=== PATIENT | male | born 1950 | race Caucasian/White ===

== ENCOUNTER 2016-07-03 11:16 | Outpatient (CLI) | payer MEDICARE, OTHER ==
[2016-07-03 12:34] LABS: Blood, Urine Moderate (Negative); Clarity Clear (Clear); Glucose, Urine (Dipstick) Negative (Negative); Leukocyte Negative (Negative); Nitrite Negative (Negative); Protein, Urine (Dipstick) 30 mg/dL (Neg-Trace); Urobilinogen 0.2 mg/dL (0.2-1.0); pH, Urine 5.5 (5.0-9.0)
[2016-07-03 12:47] LABS: Bilirubin Negative (Negative); Icto Negative (Negative)
[2016-07-03 13:00] LABS: ALT (SGPT) 37 U/L (8-55); AST (SGOT) 22 U/L (5-34); Albumin 4.3 g/dL (3.4-4.8); Alkaline Phosphatase 51 U/L (40-150); Anion Gap 18 mmol/L (10-20); BUN (Urea Nitrogen) 25 mg/dL (8.4-25.7); Bilirubin, Total 0.7 mg/dL (0.2-1.2); Calc. Creatinine Clearance 0 mL/min (70-130); Calcium 9.9 mg/dL (7.8-10.44); Carbon Dioxide 19 mmol/L (23-31); Chloride 106 mmol/L (98-107); Estimated GFR-MDRD 40; Globulin 2.9 g/dL (2.4-3.5); Glucose 106 mg/dL (80-115); Potassium 5.2 mmol/L (3.5-5.1); Protein, Total 7.2 g/dL (5.8-8.1); Sodium 138 mmol/L (136-145)
[2016-07-03 13:43] LABS: Band 19 % (5-11); Eosinophils 25 % (0-10); Hemoglobin 13.8 g/dL (14.0-18.0); Lymphocytes 9 % (21-51); MDiff Complete? YES; Mean Corpuscular HGB CONC 34.3 g/dL (32.0-36.0); Mean Corpuscular Hemoglobin 31.8 pg (27.0-31.0); Mean Corpuscular Volume 92.8 fl (80.0-94.0); Monocytes 8 % (0-10); Neutrophil 39 % (42-75); PLT Morphology Comment Appears Adequate; Platelet Count 285 thou/uL (130-400); RBC Distribution Width 11.9 % (11.5-14.5); Red Blood Cell (RBC) Count 4.32 mill/uL (4.70-6.10)
[2016-07-03 13:51] LABS: PSA-Asymptomatic (SCREENING) 0.83 ng/mL (0-4.0); Thyroid Stimulating Hormone 2.5361 uIU/mL (0.35-4.94)
[2016-07-03 14:18] LABS: Squamous Epithelial 0-3 HPF (0-3)
[2016-07-03 14:19] LABS: Bacteria/HPF 1+ HPF (None Seen); Hyaline Casts/LPF 0-3 HYALINE CAST LPF (0-3 Hyaline); Other Microscopic Description NO
== END 2016-07-03 11:17 | disposition home or self-care (01) ==
LOC: NAVSJIPCSP 11:16
PROVIDERS: ATTEND Internal Medicine
DX: I10 Essential (primary) hypertension (principal); R63.4 Abnormal weight loss
CPT/HCPCS: 36415; 80053; 81003; 81015; 84443; 85025; G0103

== ENCOUNTER 2016-07-03 12:01 | Outpatient (CLI) | payer MEDICARE ==
--- NOTE | 2016-07-03 15:34 | RAD ---
TWO VIEWS OF THE CHEST 07/03/16 COMPARISON: None. HISTORY: Hypertension, smoker, shortness of breath. FINDINGS: There is a soft tissue mass in the left hilum measuring approximately 4 cm. There is a cavitary lesi on in the lateral aspect of the left upper lobe measuring up to approximately 2.3 cm. No pneumothora x is seen. The right lung appears clear. No pleural fluid. IMPRESSION: Cavitary lesion in lateral aspect of left upper lobe with left hilar mass lesion. The findings are s uspicious for cavitary left upper lobe neoplasm with hilar metastatic disease. A CT examination of t he chest with IV contrast is advised for further characterization. Code T-Findings discussed with Dr. Avila at 1pm on 07/03/2016. POS: [facility]
== END 2016-07-03 12:02 | disposition home or self-care (01) ==
LOC: NAV RAD 12:01
PROVIDERS: ATTEND Internal Medicine
DX: I10 Essential (primary) hypertension (principal)
CPT/HCPCS: 36415; 71020; 80053; 81003; 81015; 84443; 85025; G0103

== ENCOUNTER 2016-07-07 12:15 | Outpatient (CLI) | payer MEDICARE ==
[2016-07-07 12:46] LABS: Anion Gap 16 mmol/L (10-20); BUN (Urea Nitrogen) 25 mg/dL (8.4-25.7); Calc. Creatinine Clearance 0 mL/min (70-130); Calcium 9.5 mg/dL (7.8-10.44); Carbon Dioxide 19 mmol/L (23-31); Chloride 106 mmol/L (98-107); Estimated GFR-MDRD 44; Glucose 122 mg/dL (80-115); Potassium 4.7 mmol/L (3.5-5.1); Sodium 136 mmol/L (136-145)
[2016-07-07 13:20] LABS: Band 8 % (5-11); Eosinophils 27 % (0-10); Hemoglobin 12.7 g/dL (14.0-18.0); Lymphocytes 6 % (21-51); MDiff Complete? YES; Mean Corpuscular HGB CONC 34.3 g/dL (32.0-36.0); Mean Corpuscular Hemoglobin 31.9 pg (27.0-31.0); Mean Corpuscular Volume 93.1 fl (80.0-94.0); Mean Platelet Volume 6.5 fL (7.4-10.4); Monocytes 5 % (0-10); Neutrophil 53 % (42-75); PLT Morphology Comment Appears Adequate; Platelet Count 274 thou/uL (130-400); RBC Distribution Width 12.1 % (11.5-14.5); RBC Morphology Normal; Red Blood Cell (RBC) Count 3.97 mill/uL (4.70-6.10); White Blood Cell (WBC) Count 28.7 thou/uL (4.8-10.8)
== END 2016-07-07 12:16 | disposition home or self-care (01) ==
LOC: NAV LAB 12:15
PROVIDERS: ATTEND Internal Medicine
DX: J98.4 Other disorders of lung (principal)
CPT/HCPCS: 36415; 80048; 85025

== ENCOUNTER 2016-07-07 13:46 | Inpatient (IN) | payer MEDICARE ==
[2016-07-07] MEDS ORDERED: Dextrose 5 % And 0.9 % NaCl 1,000 ML IV SCH (14:15)
[2016-07-07 15:25] VITALS: BMI 21.6
[2016-07-07] MEDS ORDERED: Acetaminophen 325 MG TAB PO PRN (19:49)
[2016-07-07] MEDS ORDERED: Ondansetron ODT 4 MG TAB PO PRN (19:49)
[2016-07-07] MEDS ORDERED: Enoxaparin Sodium 40 MG/0.4 ML SYRINGE SC SCH (20:00)
[2016-07-07] MEDS: Sodium Chloride 0.9% 1,000 ML IV SCH (20:37)
[2016-07-07] MEDS: Escitalopram Oxalate 10 mg Tablet PO SCH (20:37)
[2016-07-07] MEDS: Famotidine 20 MG TAB PO SCH (20:37)
[2016-07-07] MEDS: Clindamycin/D5W 600 MG in Premix Bag 1 BAG IVPB SCH (21:32)
[2016-07-08] MEDS: Clindamycin/D5W 600 MG in Premix Bag 1 BAG IVPB SCH ×3 (05:16→15:17)
[2016-07-08] MEDS: Sodium Chloride 0.9% 1,000 ML IV SCH ×2 (05:16→13:39)
[2016-07-08 06:24] LABS: Anion Gap 13 mmol/L (10-20); BUN (Urea Nitrogen) 17 mg/dL (8.4-25.7); Calc. Creatinine Clearance 54 mL/min (70-130); Calcium 8.8 mg/dL (7.8-10.44); Carbon Dioxide 20 mmol/L (23-31); Chloride 110 mmol/L (98-107); Estimated GFR-MDRD 52; Glucose 102 mg/dL (80-115); Potassium 4.6 mmol/L (3.5-5.1); Sodium 138 mmol/L (136-145)
[2016-07-08 06:33] LABS: Band 7 % (5-11); Eosinophils 27 % (0-10); Hemoglobin 10.9 g/dL (14.0-18.0); Lymphocytes 10 % (21-51); MDiff Complete? YES; Mean Corpuscular Hemoglobin 31.5 pg (27.0-31.0); Mean Corpuscular Volume 92.5 fl (80.0-94.0); Mean Platelet Volume 6.8 fL (7.4-10.4); Neutrophil 56 % (42-75); PLT Morphology Comment Appears Adequate; Platelet Count 248 thou/uL (130-400); RBC Distribution Width 12.2 % (11.5-14.5); Red Blood Cell (RBC) Count 3.44 mill/uL (4.70-6.10); White Blood Cell (WBC) Count 25.8 thou/uL (4.8-10.8)
[2016-07-08 07:45] VITALS: BP 113/64; TEMP 98.2
[2016-07-08] MEDS ORDERED: Lisinopril 20 MG TAB PO SCH ×2 (09:00)
[2016-07-08] MEDS ORDERED: Iopamidol 370 76% 100 ML VIAL ONE (09:00)
[2016-07-08] MEDS: Escitalopram Oxalate 10 mg Tablet PO SCH (09:07)
[2016-07-08] MEDS: Famotidine 20 MG TAB PO SCH (09:07)
--- NOTE | 2016-07-08 09:44 | CT ---
CHEST CT WITH CONTRAST: HISTORY: Abnormal chest radiograph. Cavitary lesion versus left hilar mass. COMPARISON: None. TECHNIQUE: Postcontrast chest CT is performed in the axial plane. Coronal reformatted images are submitted for interpretation. CORRELATION: CT liver biopsy 10/05/14, abdomen and pelvic ct 09/13/14. FINDINGS: Heart size is normal. No significant pericardial fluid. There is an enlarged, necrotic prevascular lymph node measuring 2.9 x 1.9 cm. A small amount of coronary calcifications. Visualized aorta villegas s a normal caliber. There is atherosclerosis. Stable hypodensities in the liver and spleen. Visualized pancreas is unremarkable. Trachea and central bronchi are patent. There is a cavitary lesion in the left upper lobe measuring 2.2 x 2.7 cm. There are nonspecific ground-glass opacities involving the left upper lobe. There i s a left hilar/suprahilar mass measuring 4.5 x 4.0 cm. There are no suspicious masses in the left l ower lobe, or in the right lung. No pleural effusion or pneumothorax. No osteoblastic or osteolytic lesions. IMPRESSION: 1. Left hilar mass. 2. Necrotic left prevascular lymph node. 3. Cavitary lesion in the left upper lobe. POS: [facility]
[2016-07-08] MEDS ORDERED: ALPRAZolam 0.5 MG TAB PO SCH (14:00)
--- NOTE | 2016-07-08 15:20 | SS ---
DATE OF ADMISSION: 07/07/2016 DATE OF TRANSFER: 07/08/2016 FINAL DIAGNOSES: 1. Metastatic probable lung cancer with cavitation and superimposed infection of the left upper lob e. 2. Hypertension. 3. Anxiety and depression. HOSPITAL COURSE: The patient is a 65-year-old white male with a history of hypertension and nicotin e abuse, still smoking a pack of cigarettes daily with a 92-awca-qady history of smoking who has had a 40-pound weight loss over the last several months, which he is felt to have been due to recurrent painful teeth requiring removal of multiple teeth and difficulty with ingestion of food secondary t o subsequent pain. He has not had any fever or chills. He has had essentially no cough, but has re cently developed a dry cough with some minimal sputum production and occasional blood tinged. PAST MEDICAL HISTORY: As mentioned above is remarkable for hypertension, well controlled on lisinop ril 20 mg daily. Depression and anxiety well controlled on escitalopram 10 mg twice daily. ALLERGIES: He has no known allergies. SOCIAL HISTORY: He has no other surgeries. FAMILY MEDICAL HISTORY: Positive for hypertension. SOCIAL HISTORY: He lives with his for several years. He drinks only occasionally. He has the above-mentioned smoking history. He is a of the [place] War with some flashbacks. REVIEW OF SYSTEMS: HEENT: Denies headaches, dizziness, change in vision or hearing, hoarseness or dysphagia. He has n o fever, chills, and sweats. Has the above-mentioned weight change. He has the above-mentioned onl y minimal cough with no shortness of breath, only minimal hemoptysis. No sputum change. CARDIOVASCULAR: Denies chest pain, orthopnea, paroxysmal nocturnal dyspnea, dyspnea on exertion. GASTROINTESTINAL: Has poor appetite, no nausea and vomiting, abdominal pain, diarrhea, constipation . GENITOURINARY: Denies dysuria, hematuria, and nocturia. MUSCULOSKELETAL: Denies stiffness, swelling in joints or extremities. PHYSICAL EXAMINATION: GENERAL: The patient is a middle-aged white male who appears in no acute distress, oriented x3, and cooperative. VITAL SIGNS: Shows blood pressure to be 105/74, weight is 162, pulse 72, BMI 21, O2 sats 96% on nate m air. HEENT: Pupils are equal, round, and react to light and accommodation. Sclerae are anicteric. Conj unctivae pale. Oral mucous membranes are well hydrated. It does appear to be some temporal wasting . NECK: Supple. There are no nodes or masses. JVP is not elevated. LUNGS: Clear. No rales, rhonchi or wheezes. CARDIAC: Examination showed regular rhythm. No gallops or murmurs. ABDOMEN: Soft, nontender with no masses or organomegaly. SKIN AND EXTREMITIES: Display no edema, clubbing, cyanosis. NEUROLOGICAL: Intact. LABORATORY DATA AND X-RAY FINDINGS: Laboratories show white count is 25,800, hematocrit 32, hemoglo bin 10. Sodium is 138, potassium 4.6, chloride 110, bicarbonate 20, BUN 17, creatinine 1.37, glucos e 102, and calcium 8.8. Initial chest x-ray was readout as an outpatient showing cavitary lesion in lateral aspect of left upper lobe with left arm mass lesion consistent with cavitary left upper lob e neoplasm with hilar metastatic disease. However, original creatinine was 1.72 making it unable to obtain CT contrast, but this is improved to 1.57 on admission into 1.37 after being given a liter o f saline overnight. He was started also on clindamycin because of the leukocytosis and possible pos tobstructive pneumonia or possible cavitary lung abscess secondary to dental abscesses and caries, b ut this is unlikely. The patient has had CT scan, which is confirmed right now. This appears to be a cavitary lung cancer with metastasis to the hilum and therefore require a pulmonary evaluation fo r possible diagnosis and a referral to Oncology assist, does not appear to be a surgical disease. Orlando randhawa has never had signs of fever or sepsis during his hospitalization and on discharge and transfers. Temperature is still afebrile at 98, pulse 73, O2 saturation is 97%, respirations 16, blood pressur e 113/64. He is felt to be stable to be transferred to [place]. Pulmonary and Oncology evaluati on and possible biopsy with bronchoscopy or percutaneous consultation will be obtained with the hosp italist prior to transfer. Family understands this. Poor prognosis. He is a FULL CODE.
== END 2016-07-08 16:45 | disposition short-term general hospital (02) | DRG 181 ==
LOC: NAV ACUTE 13:46
PROVIDERS: ADMIT Internal Medicine; ATTEND Internal Medicine
DX: C34.12 Malignant neoplasm of upper lobe, left bronchus or lung (principal); C79.9 Secondary malignant neoplasm of unspecified site; I10 Essential (primary) hypertension; F41.9 Anxiety disorder, unspecified; F32.9 Major depressive disorder, single episode, unspecified; F17.210 Nicotine dependence, cigarettes, uncomplicated
CPT/HCPCS: 36415; 71260; 80048; 85025; 87040; 87070; 87116; 87149; 87205; 87206; A4216; J1650; J3490; J7042; J7050

== ENCOUNTER 2016-08-20 13:28 | Outpatient (CLI) | payer MEDICARE ==
--- NOTE | 2016-08-20 15:37 | ULT ---
RIGHT LOWER EXTREMITY VENOUS ULTRASOUND: COMPARISON: None. HISTORY: Radiation therapy to the right leg with swelling and pain. TECHNIQUE: Multiplanar, sullivan scale, and color Doppler images were obtained in a right lower extremity venous ul trasound. Spectral analysis of the Doppler waveforms was performed. FINDINGS: The right common femoral vein, profunda femoral vein, superficial femoral vein, and popliteal vein a re normal in appearance without visible thrombus. These vessels demonstrate normal compression, cordell w, and augmentation. The right posterior tibial vein and greater saphenous vein are also patent. IMPRESSION: No evidence of right lower extremity deep vein thrombosis. POS: [facility] [place]
--- NOTE | 2016-08-20 16:20 | CT ---
CT ABDOMEN AND PELVIS WITHOUT CONTRAST 08/20/16 HISTORY: Lung cancer with radiation and chemotherapy. Extreme back pain. COMPARISON: Abdomen and pelvis CT from September 10, 2014. FINDINGS: There is severe progression of tumor throughout the mediastinum, abdomen and pelvis. There are new a nd enlarging nodules throughout the mediastinum including the pericardium as well as within the retr operitoneum and the intraperitoneal space. There is involvement of the right transversus abdominis, right internal oblique, right internal oblique muscle as well as the iliacus muscles bilaterally and iliolumbar fascia bilaterally. The largest centrally necrotic tumors along the mesentery of the spl enic flexure measuring 6.5 x 12 x approximately 5 cm. No definite bone extension is appreciated. Muscular involvement also involves the left iliacus muscl e. The muscle and soft tissue involvement with tumor is limited without intravenous contrast. IMPRESSION: Massive soft tissue tumor progression above and below the diaphragm. Code EMMIE Avila notified of the findings via telephone, 3:15 p.m. POS: [facility]
--- NOTE | 2016-08-20 16:23 | CT ---
CT LUMBAR SPINE WITHOUT CONTRAST: 08/20/16 COMPARISON: None. HISTORY: Lung cancer, radiation therapy with chemotherapy. Extreme back pain and pelvic pain. Evaluate for metastases. TECHNIQUE: Multiple contiguous axial images were obtained in a CT of the lumbar spine without contrast. Sagitta l and coronal reformats were performed. FINDINGS: The lumbar vertebral bodies demonstrate normal height and alignment without fracture or subluxation. No obvious lytic or sclerotic metastases are seen to the lumbar spine. Please see dedicated abdominal CT for findings in the retroperitoneum. The paraspinal soft tissues a re unremarkable. There is no bony narrowing of the central canal. There is mild bony narrowing of the neural foramina at L5-S1. IMPRESSION: No evidence of acute osseous abnormality of the lumbar spine or osseous metastatic disease to the shelbi mbar spine. POS: [facility]
== END 2016-08-20 13:29 | disposition home or self-care (01) ==
LOC: NAV CT 13:28
PROVIDERS: ATTEND Internal Medicine
DX: C79.51 Secondary malignant neoplasm of bone (principal); I82.401 Acute embolism and thrombosis of unspecified deep veins of right lower extremity
CPT/HCPCS: 72131; 74176